=== PATIENT | female | born 1990 | race Two or more races ===

== ENCOUNTER 2017-12-05 15:28 | Emergency (ER) | payer MEDICAID, OTHER, SELFPAY ==
[~2017-12-05] VITALS: Ht 157.5 cm; Wt 65.1 kg
[2017-12-05 16:24] LABS: CULTURE INDICATED? NO; MICROSCOPIC NOT IND
[2017-12-05 17:03] LABS: BASOPHILS # (AUTO) 0.05 x10^3/uL (0-0.1); BASOPHILS % (AUTO) 0 % (0-1); EOSINOPHILS # (AUTO) 0.28 x10^3/uL (0-0.4); EOSINOPHILS % (AUTO) 2 % (1-7); LYMPHOCYTES # (AUTO) 2.57 x10^3/uL (1-3.4); LYMPHOCYTES % (AUTO) 19 % (22-44); MD NO; MEAN CORPUSCULAR HEMOGLOBIN 32.3 pg (27.0-34.8); MEAN CORPUSCULAR HGB CONC 34.9 g/dL (32.4-35.8); MEAN CORPUSCULAR VOLUME 92.6 fL (80-100); MEAN PLATELET VOLUME 7.6 fL (7.4-10.4); MONOCYTES % (AUTO) 9 % (2-9); NEUTROPHILS # (AUTO) 9.21 x10^3/uL (1.8-6.8); NEUTROPHILS % (AUTO) 69 % (42-75); PLATELET COUNT 419 x10^3/uL (130-400); RED BLOOD COUNT 4.36 x10^6/uL (3.82-5.3); RED CELL DISTRIBUTION WIDTH 12.5 % (9.6-15.2)
[2017-12-05 17:07] LABS: ALBUMIN 4.3 g/dL (3.4-5.0); ANION GAP 9 mmol/L (5-15); CALCIUM 8.8 mg/dL (8.5-10.1); CHLORIDE 106 mmol/L (98-107); CREATININE 0.77 mg/dL (0.55-1.02)
[2017-12-05 18:12] VITALS: BP 108/64
== END 2017-12-05 18:23 | disposition home or self-care (01) ==
LOC: ED 18:20
DX: O20.0 Threatened abortion (principal); Z3A.01 Less than 8 weeks gestation of pregnancy
CPT/HCPCS: 36415; 76801; 80048; 81003; 82040; 84702; 84703; 85025; 99285

== ENCOUNTER 2018-04-21 23:22 | Emergency (ER) | payer MEDICAID ==
[~2018-04-21] VITALS: Ht 157.5 cm; Wt 69.6 kg
[2018-04-21 23:24] VITALS: BP 133/82
[2018-04-21] MEDS ORDERED: ACETAMINOPHEN 500 MG TABLET ONE (23:58)
[2018-04-22] MEDS ORDERED: ACETAMINOPHEN 500 MG TABLET PO ONE
[2018-04-22 00:08] LABS: BASOPHILS # (AUTO) 0.05 x10^3/uL (0-0.1); BASOPHILS % (AUTO) 0 % (0-1); EOSINOPHILS # (AUTO) 0.17 x10^3/uL (0-0.4); EOSINOPHILS % (AUTO) 2 % (1-7); LYMPHOCYTES # (AUTO) 1.85 x10^3/uL (1-3.4); LYMPHOCYTES % (AUTO) 16 % (22-44); MD NO; MEAN CORPUSCULAR HEMOGLOBIN 32.6 pg (27.0-34.8); MEAN CORPUSCULAR HGB CONC 34.6 g/dL (32.4-35.8); MEAN PLATELET VOLUME 7.1 fL (7.4-10.4); MONOCYTES % (AUTO) 9 % (2-9); NEUTROPHILS # (AUTO) 8.58 x10^3/uL (1.8-6.8); NEUTROPHILS % (AUTO) 73 % (42-75); PLATELET COUNT 266 x10^3/uL (130-400); RED BLOOD COUNT 3.71 x10^6/uL (3.82-5.3); RED CELL DISTRIBUTION WIDTH 13.3 % (9.6-15.2)
[2018-04-22 00:18] LABS: ANION GAP 7 mmol/L (5-15); CALCIUM 8.3 mg/dL (8.5-10.1); CHLORIDE 106 mmol/L (98-107); CREATININE 0.53 mg/dL (0.55-1.02)
[2018-04-22 00:21] LABS: TROPONIN I < 0.015 ng/mL (0.000-0.045)
== END 2018-04-22 01:29 | disposition home or self-care (01) ==
LOC: ED 23:59
DX: O26.892 Other specified pregnancy related conditions, second trimester (principal); R07.9 Chest pain, unspecified; Z3A.20 20 weeks gestation of pregnancy
CPT/HCPCS: 36415; 71046; 80048; 82040; 84484; 85025; 93005; 99285

== ENCOUNTER 2018-05-24 14:27 | Observation (INO) | payer MEDICAID ==
[~2018-05-24] VITALS: Ht 157.5 cm; Wt 72.2 kg
[2018-05-24 14:41] VITALS: BP 90/53
[2018-05-24 14:59] LABS: CULTURE INDICATED? NO; MICROSCOPIC NOT IND
[2018-05-24] MEDS ORDERED: KETOROLAC 30 MG/1 ML ONE (15:56)
[2018-05-24] MEDS ORDERED: KETOROLAC 30 MG/1 ML IM ONE (16:00)
== END 2018-05-24 20:00 | disposition home or self-care (01) ==
LOC: LDOP 14:27 → LDIP 15:53
PROVIDERS: ADMIT Obstetrics & Gynecology; ATTEND Obstetrics & Gynecology
DX: O26.893 Other specified pregnancy related conditions, third trimester (principal); R10.9 Unspecified abdominal pain; Z3A.39 39 weeks gestation of pregnancy
CPT/HCPCS: 36415; 59025; 76815; 81003; 82731; 96372; 99201; G0378; J1885; G0463

== ENCOUNTER 2018-05-26 08:46 | Outpatient (CLI) | payer MEDICAID ==
[~2018-05-26] VITALS: Ht 157.5 cm; Wt 71.8 kg
[2018-05-26 09:02] VITALS: BP 101/56
[2018-05-26] MEDS ORDERED: PREN-3 PO (09:06)
[2018-05-26] MEDS ORDERED: BETAMETHASONE 6 MG/ML, 5ML IM ONE ×2 (09:30)
[2018-05-26] MEDS ORDERED: KETOROLAC 30 MG/1 ML ONE (11:20)
[2018-05-26] MEDS ORDERED: KETOROLAC 30 MG/1 ML IM ONE (11:30)
== END 2018-05-26 12:13 | disposition home or self-care (01) ==
LOC: LDOP 08:46
PROVIDERS: ATTEND Obstetrics & Gynecology
DX: O26.893 Other specified pregnancy related conditions, third trimester (principal); R55 Syncope and collapse; Z3A.29 29 weeks gestation of pregnancy
CPT/HCPCS: 59025; 82962; 96372; 99211; J0702; J1885; G0463

== ENCOUNTER 2018-05-27 09:13 | Outpatient (CLI) | payer MEDICAID ==
[~2018-05-27] VITALS: Ht 157.5 cm; Wt 71.8 kg
[~2018-05-27 09:13] MED LIST: PREN-3 PO
[2018-05-27 09:25] VITALS: BP 108/65
[2018-05-27] MEDS ORDERED: PLEASE ENTER HEIGHT AND WEIGHT MC SCH (09:30)
[2018-05-27] MEDS ORDERED: BETAMETHASONE 6 MG/ML, 5ML IM ONE (09:30)
== END 2018-05-27 09:50 | disposition home or self-care (01) ==
LOC: LDOP 09:13
PROVIDERS: ATTEND Obstetrics & Gynecology
DX: O26.893 Other specified pregnancy related conditions, third trimester (principal); R55 Syncope and collapse; Z3A.29 29 weeks gestation of pregnancy
CPT/HCPCS: 59025; 96372; 99211; J0702; G0463

== ENCOUNTER 2018-06-23 15:52 | Observation (INO) | payer MEDICAID ==
[~2018-06-23] VITALS: Ht 157.5 cm; Wt 73.0 kg
[2018-06-23] MEDS ORDERED: TERBUTALINE 1 MG/ML, 1ML ONE (16:34)
[2018-06-23 16:57] LABS: MICROSCOPIC INDICATED
[2018-06-23] MEDS ORDERED: LACTATED RINGERS 1,000 ML IV SCH (17:00)
[2018-06-23] MEDS ORDERED: TERBUTALINE 1 MG/ML, 1ML SQ ONE (17:00)
[2018-06-23 17:35] LABS: BASOPHILS # (AUTO) 0.03 x10^3/uL (0-0.1); BASOPHILS % (AUTO) 0 % (0-1); EOSINOPHILS # (AUTO) 0.13 x10^3/uL (0-0.4); EOSINOPHILS % (AUTO) 1 % (1-7); LYMPHOCYTES # (AUTO) 2.73 x10^3/uL (1-3.4); LYMPHOCYTES % (AUTO) 23 % (22-44); MD NO; MEAN CORPUSCULAR HEMOGLOBIN 31.8 pg (27.0-34.8); MEAN CORPUSCULAR HGB CONC 33.9 g/dL (32.4-35.8); MEAN CORPUSCULAR VOLUME 93.8 fL (80-100); MEAN PLATELET VOLUME 7.5 fL (7.4-10.4); MONOCYTES # (AUTO) 1.12 x10^3/uL (0.2-0.8); MONOCYTES % (AUTO) 9 % (2-9); NEUTROPHILS # (AUTO) 8.01 x10^3/uL (1.8-6.8); NEUTROPHILS % (AUTO) 67 % (42-75); PLATELET COUNT 254 x10^3/uL (130-400); RED BLOOD COUNT 3.92 x10^6/uL (3.82-5.3); RED CELL DISTRIBUTION WIDTH 13.6 % (9.6-15.2)
== END 2018-06-23 18:50 | disposition home or self-care (01) ==
LOC: LDOP 15:52 → LDIP 16:35
PROVIDERS: ADMIT Obstetrics & Gynecology; ATTEND Obstetrics & Gynecology
DX: O62.9 Abnormality of forces of labor, unspecified (principal); O26.893 Other specified pregnancy related conditions, third trimester; R10.9 Unspecified abdominal pain; Z3A.33 33 weeks gestation of pregnancy
CPT/HCPCS: 36415; 59025; 81001; 82731; 85025; 86850; 86900; 87081; 87086; 96372; G0378; J3105; J7120; 96360; 96361

== ENCOUNTER 2018-06-25 20:50 | Observation (INO) | payer MEDICAID ==
[~2018-06-25] VITALS: Ht 162.6 cm; Wt 74.0 kg
[2018-06-25] MEDS ORDERED: LACTATED RINGERS 1,000 ML IV PRN (21:22)
[2018-06-25] MEDS ORDERED: TERBUTALINE 1 MG/ML, 1ML IV ONE (21:30)
== END 2018-06-26 00:44 | disposition home or self-care (01) ==
LOC: LDOP 20:50 → LDIP 21:27
PROVIDERS: ADMIT Obstetrics & Gynecology; ATTEND Obstetrics & Gynecology
DX: O62.9 Abnormality of forces of labor, unspecified (principal); Z3A.33 33 weeks gestation of pregnancy
CPT/HCPCS: 59025; 96374; 99211; G0378; J3105; J7120; 96360; 96361; 96372; G0463

== ENCOUNTER 2018-06-28 11:54 | Outpatient (CLI) | payer MEDICAID ==
[~2018-06-28] VITALS: Ht 157.5 cm; Wt 73.6 kg
[2018-06-28 12:00] VITALS: BP 106/69
[2018-06-28] MEDS ORDERED: NIFE10CA PO (12:47)
== END 2018-06-28 12:54 | disposition home or self-care (01) ==
LOC: LDOP 11:54
PROVIDERS: ATTEND Obstetrics & Gynecology
DX: O26.893 Other specified pregnancy related conditions, third trimester (principal); R10.9 Unspecified abdominal pain; Z3A.34 34 weeks gestation of pregnancy
CPT/HCPCS: 59025; 99211; G0463

== ENCOUNTER 2018-07-03 17:14 | Outpatient (CLI) | payer MEDICAID ==
[~2018-07-03] VITALS: Ht 157.5 cm; Wt 73.6 kg
[~2018-07-03 17:14] MED LIST changes: +NIFE10CA PO
[2018-07-03 17:38] VITALS: BP 107/58
[2018-07-03 17:50] LABS: MICROSCOPIC NOT IND
[2018-07-03] MEDS ORDERED: TERBUTALINE 1 MG/ML, 1ML ONE (17:57)
[2018-07-03] MEDS ORDERED: TERBUTALINE 1 MG/ML, 1ML SQ ONE (18:00)
== END 2018-07-03 19:18 | disposition home or self-care (01) ==
LOC: LDOP 17:14
PROVIDERS: ATTEND Obstetrics & Gynecology
DX: O62.9 Abnormality of forces of labor, unspecified (principal); Z3A.34 34 weeks gestation of pregnancy
CPT/HCPCS: 59025; 81003; 87086; 96372; 99211; J3105; G0463

== ENCOUNTER 2018-07-23 16:50 | Outpatient (CLI) | payer MEDICAID ==
[~2018-07-23] VITALS: Ht 157.5 cm; Wt 76.3 kg
[2018-07-23 17:00] VITALS: BP 119/67
== END 2018-07-23 18:45 | disposition home or self-care (01) ==
LOC: LDOP 16:50
PROVIDERS: ATTEND Obstetrics & Gynecology
DX: O36.8130 Decreased fetal movements, third trimester, not applicable or unspecified (principal); Z3A.37 37 weeks gestation of pregnancy
CPT/HCPCS: 59025; 76819; 99211; G0463

== ENCOUNTER 2018-07-31 00:41 | Outpatient (CLI) | payer MEDICAID ==
[~2018-07-31] VITALS: Ht 157.5 cm; Wt 76.4 kg
== END 2018-07-31 02:00 | disposition home or self-care (01) ==
LOC: LDOP 00:41
PROVIDERS: ATTEND Obstetrics & Gynecology
DX: O62.9 Abnormality of forces of labor, unspecified (principal); Z3A.38 38 weeks gestation of pregnancy
CPT/HCPCS: 59025; 99211; G0463

== ENCOUNTER 2018-07-31 04:03 | Inpatient (IN) | payer MEDICAID ==
[~2018-07-31] VITALS: Ht 157.5 cm; Wt 76.6 kg
[2018-07-31] MEDS ORDERED: D5%-LACTATED RINGERS 1,000 ML IV SCH (04:09)
[2018-07-31] MEDS ORDERED: OXYTOCIN 30U/ 0.9% NaCL 500ML 500 ML IV ONE (04:09)
[2018-07-31] MEDS ORDERED: OXYTOCIN 30U/ 0.9% NaCL 500ML 500 ML IV PRN (04:09)
[2018-07-31] MEDS ORDERED: LIDOCAINE/PF 1%, 30ML ONE (04:22)
[2018-07-31] MEDS ORDERED: NEWBORN KIT ONE (04:22)
[2018-07-31] MEDS ORDERED: OXYTOCIN 30U/ 0.9% NaCL 500ML 500 ML ONE ×2 (04:22→09:44)
[2018-07-31] MEDS ORDERED: SODIUM CITRATE/CITRIC ACID 30 ML UDC PO PRN (04:30)
[2018-07-31] MEDS ORDERED: TERBUTALINE 1 MG/ML, 1ML IVPush PRN (04:30)
[2018-07-31] MEDS ORDERED: FENTANYL PF 100 MCG/2ML IV PRN (04:30)
[2018-07-31] MEDS ORDERED: ONDANSETRON 2MG/ML, 2ML IVPush PRN (04:30)
[2018-07-31] MEDS ORDERED: CALCIUM CARBONATE 500 MG TAB.CHEW PO PRN (04:30)
[2018-07-31] MEDS: LACTATED RINGERS 1,000 ML IV SCH ×2 (04:48→09:47)
[2018-07-31] MEDS ORDERED: FENTANYL PF 100 MCG/2ML ONE ×2 (04:52→06:15)
[2018-07-31] MEDS ORDERED: FENTANYL/BUPIV./NS/PF 250 ML EPIDCONT SCH (04:53)
[2018-07-31] MEDS: FENTANYL PF 100 MCG/2ML IVPush PRN ×2 (04:55→06:16)
[2018-07-31] MEDS ORDERED: FENTANYL PF 500 MCG, BUPIVACAINE/PF 0.5%, 30ML 62.5 ML in SODIUM CHLORIDE 0.9% 177.5 ML EPIDCONT SCH (05:00)
[2018-07-31 05:08] LABS: BASOPHILS # (AUTO) 0.04 x10^3/uL (0-0.1); BASOPHILS % (AUTO) 0 % (0-1); EOSINOPHILS # (AUTO) 0.17 x10^3/uL (0-0.4); EOSINOPHILS % (AUTO) 2 % (1-7); LYMPHOCYTES # (AUTO) 2.67 x10^3/uL (1-3.4); LYMPHOCYTES % (AUTO) 26 % (22-44); MD NO; MEAN CORPUSCULAR HEMOGLOBIN 31.4 pg (27.0-34.8); MEAN CORPUSCULAR HGB CONC 33.6 g/dL (32.4-35.8); MEAN CORPUSCULAR VOLUME 93.4 fL (80-100); MEAN PLATELET VOLUME 8.4 fL (7.4-10.4); MONOCYTES # (AUTO) 0.86 x10^3/uL (0.2-0.8); MONOCYTES % (AUTO) 8 % (2-9); NEUTROPHILS # (AUTO) 6.65 x10^3/uL (1.8-6.8); NEUTROPHILS % (AUTO) 64 % (42-75); PLATELET COUNT 231 x10^3/uL (130-400); RED BLOOD COUNT 4.21 x10^6/uL (3.82-5.3); RED CELL DISTRIBUTION WIDTH 14.2 % (9.6-15.2)
[2018-07-31] MEDS ORDERED: IBUPROFEN 600 MG TABLET ONE ×2 (09:17→15:21)
[2018-07-31] MEDS ORDERED: ONDANSETRON 2MG/ML, 2ML IV PRN (09:30)
[2018-07-31] MEDS ORDERED: METOCLOPRAMIDE 5 MG/ML, 2ML IV PRN (09:30)
[2018-07-31] MEDS ORDERED: ACETAMINOPHEN 325 MG TABLET PO PRN (09:30)
[2018-07-31] MEDS ORDERED: MISOPROSTOL 200 MCG TABLET PR PRN (09:30)
[2018-07-31] MEDS: PRENATAL VIT/IRON/FA 1 EACH TABLET PO SCH (09:30)
[2018-07-31] MEDS ORDERED: CARBOPROST TROMETHAMINE 250 MCG/ML, 1ML IM PRN (09:30)
[2018-07-31] MEDS ORDERED: DOCUSATE 100 MG CAPSULE PO PRN (09:30)
[2018-07-31] MEDS ORDERED: GLYCERIN ADULT SUPP PR PRN (09:30)
[2018-07-31] MEDS: OXYTOCIN 30U/ 0.9% NaCL 500ML 500 ML IV SCH ×3 (09:47→23:13)
[2018-07-31 11:25] VITALS: BP 107/67
[2018-07-31] MEDS: OXYcodone/APAP 5/325MG TABLET PO PRN (12:26)
[2018-07-31] MEDS: IBUPROFEN 600 MG TABLET PO PRN (15:28)
[2018-07-31 16:10] VITALS: BP 116/80
[2018-07-31 17:16] LABS: BASOPHILS # (AUTO) 0.02 x10^3/uL (0-0.1); BASOPHILS % (AUTO) 0 % (0-1); EOSINOPHILS # (AUTO) 0.01 x10^3/uL (0-0.4); EOSINOPHILS % (AUTO) 0 % (1-7); LYMPHOCYTES # (AUTO) 1.85 x10^3/uL (1-3.4); LYMPHOCYTES % (AUTO) 11 % (22-44); MD NO; MEAN CORPUSCULAR HEMOGLOBIN 32.3 pg (27.0-34.8); MEAN CORPUSCULAR HGB CONC 34.1 g/dL (32.4-35.8); MEAN CORPUSCULAR VOLUME 94.5 fL (80-100); MEAN PLATELET VOLUME 8.1 fL (7.4-10.4); MONOCYTES # (AUTO) 1.06 x10^3/uL (0.2-0.8); MONOCYTES % (AUTO) 6 % (2-9); NEUTROPHILS # (AUTO) 14.04 x10^3/uL (1.8-6.8); NEUTROPHILS % (AUTO) 83 % (42-75); PLATELET COUNT 239 x10^3/uL (130-400); RED CELL DISTRIBUTION WIDTH 14.3 % (9.6-15.2)
[2018-07-31 20:00] VITALS: BP 104/69
[2018-08-01] MEDS: IBUPROFEN 600 MG TABLET PO PRN (00:13)
[2018-08-01 00:15] VITALS: BP 101/53
[2018-08-01] MEDS: OXYcodone/APAP 5/325MG TABLET PO PRN (06:05)
[2018-08-01 08:45] VITALS: BP 126/76
[2018-08-01] MEDS: PRENATAL VIT/IRON/FA 1 EACH TABLET PO SCH (09:00)
[2018-08-01] MEDS ORDERED: DIPH,PERTUSS(ACELL),TET VAC/PF NC IM-VACC ONE (11:00)
[2018-08-01] MEDS ORDERED: MEASLES,MUMPS&RUBELLA VACC/PF 0.5 ML SQ-VACC ONE (11:00)
== END 2018-08-01 11:21 | disposition home or self-care (01) | DRG 807 ==
LOC: LDOP 04:03 → LDIP 04:13 → 2NW 11:02
PROVIDERS: ADMIT Obstetrics & Gynecology; ATTEND Obstetrics & Gynecology
PROC: 10E0XZZ Delivery of Products of Conception, External Approach (ICD-10-PCS; principal; 2018-07-31)
PROC: 0HQ9XZZ Repair Perineum Skin, External Approach (ICD-10-PCS; 2018-07-31)
DX: O70.0 First degree perineal laceration during delivery (principal); Z37.0 Single live birth; Z3A.38 38 weeks gestation of pregnancy
CPT/HCPCS: 36415; 85025; 86850; 86900; 90715; G0378; J3010; J2590; J7120

== ENCOUNTER 2019-01-01 07:05 | Day surgery (SDC) | payer MEDICAID ==
[2018-12-30 08:45] LABS: BASOPHILS # (AUTO) 0.06 x10^3/uL (0-0.1); BASOPHILS % (AUTO) 1 % (0-1); EOSINOPHILS # (AUTO) 0.18 x10^3/uL (0-0.4); EOSINOPHILS % (AUTO) 3 % (1-7); LYMPHOCYTES # (AUTO) 2.04 x10^3/uL (1-3.4); LYMPHOCYTES % (AUTO) 31 % (22-44); MD NO; MEAN CORPUSCULAR HGB CONC 34.1 g/dL (32.4-35.8); MEAN PLATELET VOLUME 7.1 fL (7.4-10.4); MONOCYTES # (AUTO) 0.57 x10^3/uL (0.2-0.8); MONOCYTES % (AUTO) 9 % (2-9); NEUTROPHILS # (AUTO) 3.84 x10^3/uL (1.8-6.8); NEUTROPHILS % (AUTO) 57 % (42-75); PLATELET COUNT 338 x10^3/uL (130-400); RED BLOOD COUNT 4.74 x10^6/uL (3.82-5.3); RED CELL DISTRIBUTION WIDTH 12.1 % (9.6-15.2)
[~2019-01-01] VITALS: Ht 157.5 cm; Wt 61.4 kg
[~2019-01-01 07:05] MED LIST changes: +NONE PER PT
[2019-01-01 07:19] VITALS: BP 103/64
[2019-01-01] MEDS ORDERED: BUPIVACAINE/PF 0.25% ONE ×2 (08:21→08:50)
[2019-01-01] MEDS ORDERED: EPINEPHRINE 1 MG/ML, 1ML ONE ×2 (08:21→08:51)
[2019-01-01] MEDS ORDERED: SILVER NITRATE STICK TP ONE ×2 (08:21→08:51)
[2019-01-01] MEDS ORDERED: MIDAZOLAM 1 MG/ML, 2ML ONE (08:54)
[2019-01-01] MEDS ORDERED: FENTANYL PF 250 MCG/5ML ONE (08:54)
[2019-01-01] MEDS ORDERED: ROCURONIUM 10MG/ML,5ML ONE (08:57)
[2019-01-01] MEDS ORDERED: CEFAZOLIN 1,000 MG ONE (08:57)
[2019-01-01] MEDS ORDERED: KETOROLAC 30 MG/1 ML ONE (08:57)
[2019-01-01] MEDS ORDERED: PROPOFOL 10 MG/ML, 20ML ONE (08:57)
[2019-01-01] MEDS ORDERED: GLYCOPYRROLATE 0.2MG/1ML, 5ML ONE (08:57)
[2019-01-01] MEDS ORDERED: DEXAMETHASONE 4 MG/ML, 1ML ONE (08:57)
[2019-01-01] MEDS ORDERED: NEOSTIGMINE 1 MG/ML, 10ML ONE (08:57)
[2019-01-01] MEDS ORDERED: ONDANSETRON 2MG/ML, 2ML ONE (08:57)
[2019-01-01] MEDS ORDERED: PHENYLEPHRINE 10 MG/ML ONE (09:03)
[2019-01-01] MEDS ORDERED: HYDROmorphone 2 MG/ML, 1ML IVPush PRN (09:30)
[2019-01-01] MEDS ORDERED: MEPERIDINE/PF 25MG/0.5ML IVPush PRN (09:30)
[2019-01-01] MEDS ORDERED: hydrALAzine 20 MG/ML, 1ML IV PRN (09:30)
[2019-01-01] MEDS ORDERED: MORPHINE SULFATE 4 MG/ML, 1ML IVPush PRN (09:30)
[2019-01-01] MEDS ORDERED: LABETALOL 5MG/ML, 20ML IV PRN (09:30)
[2019-01-01] MEDS ORDERED: PROMETHAZINE 25 MG SUPP PR PRN (09:30)
[2019-01-01] MEDS ORDERED: ACETAMINOPHEN 325 MG TABLET PO PRN (09:30)
[2019-01-01] MEDS ORDERED: PROMETHAZINE 25 MG/ML, 1ML IV PRN (09:30)
[2019-01-01] MEDS ORDERED: PROMETHAZINE 12.5 MG SUPP PR PRN (09:30)
[2019-01-01] MEDS ORDERED: OXYcodone 5 MG/5 ML ORAL.SOL UDC PO PRN (09:30)
[2019-01-01] MEDS ORDERED: FENTANYL PF 100 MCG/2ML IV PRN (09:30)
[2019-01-01] MEDS ORDERED: ONDANSETRON 2MG/ML, 2ML IV PRN (09:30)
[2019-01-01] MEDS ORDERED: ONDANSETRON ODT 8 MG PO PRN (09:30)
[2019-01-01] MEDS ORDERED: PROMETHAZINE 25 MG/ML, 1ML IM PRN ×2 (09:30)
[2019-01-01] MEDS ORDERED: BUPIVACAINE/PF-EPI 0.25% 1:200K INFIL ONE (09:31)
[2019-01-01] MEDS ORDERED: FENTANYL PF 100 MCG/2ML ONE (10:10)
[2019-01-01] MEDS ORDERED: OXYcodone 5 MG/5 ML ORAL.SOL UDC ONE (10:10)
[2019-01-01] MEDS ORDERED: LACTATED RINGERS 1,000 ML IV SCH (10:46)
[2019-01-01] MEDS ORDERED: OXYcodone/APAP 5/325MG TABLET PO PRN (11:30)
[2019-01-01] MEDS ORDERED: KETOROLAC 30 MG/1 ML IV PRN (11:30)
[2019-01-01] MEDS ORDERED: morphine SULFATE 10 MG/ML, 1ML IV PRN (11:30)
[2019-01-01 13:25] VITALS: BP 94/58
[2019-01-01] MEDS ORDERED: OXYC-302 PO (13:55)
[2019-01-01] MEDS ORDERED: IBUP-1222 PO (14:05)
[2019-01-01] MEDS ORDERED: DOCU-131 PO (14:07)
[2019-01-01] MEDS ORDERED: IBUPROFEN 600 MG TABLET PO SCH (16:00)
== END 2019-01-01 14:18 | disposition home or self-care (01) ==
LOC: OR 07:05 → 4NOR 07:09 → OR 14:18
PROVIDERS: ATTEND Obstetrics & Gynecology
DX: Z30.2 Encounter for sterilization (principal); N85.4 Malposition of uterus; Z79.899 Other long term (current) drug therapy
CPT/HCPCS: 36415; 58661; 71046; 84703; 85025; 93005; J0171; J0690; J1100; J1885; J2250; J2405; J2704; J2710; J3010; J3490; 88302; G0378; J2370